=== PATIENT | female | born 1990 | race Caucasian/White ===

== ENCOUNTER 2016-05-30 17:52 | Emergency (ER) | payer BC ==
[2016-05-30] MEDS ORDERED: NS 0.9% 1000 ML* 1,000 ML IV ONE (20:21)
[2016-05-30] MEDS ORDERED: Ondansetron INJ* 2 MG/ML VIAL IV ONE (20:21)
--- NOTE | 2016-05-30 20:26 | ED ---
I, Oh,Soohyun, scribed for Tomi Gallardo MD on 05/30/16 at 2025 . Abdominal Pain/Female - HPI Summary HPI Summary: This 26 y/o female presents to ED for intermittent bilat upper abd pain since 2 days ago. Pain radiates to left mid back, and is worse after eating. She reports diaphoresis, nausea, and decreased appetite associated with abd pain episodes. Pt wasn't able to "eat whole [employer] burrito as usual but only ate half" yesterday. Negative vomiting, fever, or dysuria. Pt does report increased urinary frequency but dismisses it saying "I drank a lot of water thinking that it would make me feel better". LMP 3 weeks ago. Primary care involves Dr. Marsh. - History of Current Complaint Chief Complaint: EDAbdPain Stated Complaint: ABD PAIN Time Seen by Provider: 05/30/16 20:16 Hx Obtained From: Patient Hx Last Menstrual Period: 2 weeks ago started ?: No Timing: Intermittent Episode Lasting Pain Intensity: 5 Pain Scale Used: 0-10 Numeric Location: Discrete At: RUQ, Discrete At: LUQ Radiates: Yes Radiates to: Back - left mid back Character: Dull Aggravating Factor(s): Food Alleviating Factor(s): Nothing Associated Signs and Symptoms: Positive: Diaphoresis, Decreased Appetite, Nausea. Negative: Fever, Vomiting Allergies/Adverse Reactions: Allergies Allergy/AdvReac Type Severity Reaction Status Date / Time Aspirin Allergy GI Upset Verified 08/31/15 13:49 Ibuprofen Allergy GI Upset Verified 08/31/15 13:49 Penicillins Allergy Rash Verified 08/31/15 13:49 Pineapple Allergy tongue Verified 08/31/15 13:49 swelling cats Allergy asthma Uncoded 08/31/15 13:49 inducing tomatoes Allergy itching Uncoded 08/31/15 13:49 tongue with swelling PMH/Surg Hx/FS Hx/Imm Hx Endocrine/Hematology History: Reports: Hx Thyroid Disease Denies: Hx Diabetes Cardiovascular History: Denies: Hx Hypertension Respiratory History: Reports: Hx Asthma Denies: Hx Chronic Obstructive Pulmonary Disease (COPD) GI History: Denies: Hx Ulcer Musculoskeletal History: Denies: Hx Rheumatoid Arthritis, Hx Osteoporosis Infectious Disease History: Reports: Hx Shingles Denies: Hx Clostridium Difficile, Hx Hepatitis, Hx Human Immunodeficiency Virus (HIV), Hx of Known/Suspected MRSA, Hx Tuberculosis, Hx Known/Suspected VRE , Hx Known/Suspected VRSA, History Other Infectious Disease, Traveled Outside the [place] in Last 30 Days - Family History Known Family History: Positive: Diabetes - mother - Social History Alcohol Use: Rare Hx Substance Use: No Substance Use Type: Reports: None Hx Tobacco Use: No Smoking Status (MU): Never Smoked Tobacco Review of Systems Positive: Skin Diaphoresis. Negative: Fever Positive: Abdominal Pain - radiating to left mid back, Nausea, Other - decreased appetite. Negative: Vomiting Positive: frequency - increased. Negative: dysuria All Other Systems Reviewed And Are Negative: Yes Physical Exam Triage Information Reviewed: Yes Vital Signs On Initial Exam: Initial Vitals Temp Pulse Resp BP Pulse Ox 98.0 F 97 18 156/99 100 05/30/16 17:57 05/30/16 17:57 05/30/16 17:57 05/30/16 17:57 05/30/16 17:57 Vital Signs Reviewed: Yes Appearance: Positive: Well-Appearing, No Pain Distress Skin: Positive: Warm Head/Face: Positive: Normal Head/Face Inspection Eyes: Positive: OMARI ENT: Positive: Hearing grossly normal Neck: Positive: Supple, Nontender Respiratory/Lung Sounds: Positive: Breath Sounds Present Cardiovascular: Positive: RRR Abdomen Description: Positive: Nontender, Soft Bowel Sounds: Positive: Present Musculoskeletal: Positive: Strength/ROM Intact Neurological: Positive: Sensory/Motor Intact, Alert, Oriented to Person Place, Time Psychiatric: Positive: Affect/Mood Appropriate Diagnostics - Vital Signs Vital Signs Temp Pulse Resp BP Pulse Ox 05/30/16 17:57 98.0 F 97 18 156/99 100 - Laboratory Result Diagrams: 05/30/16 21:00 05/30/16 21:00 Lab Statement: Any lab studies that have been ordered have been reviewed, and results considered in the medical decision making process. Re-Evaluation - Re-Evaluation First Eval Change: Improved Abdominal Pain Fem Course/Dx - Diagnoses Provider Diagnoses: Abdominal pain Discharge - Discharge Plan Condition: Stable Disposition: HOME Patient Education Materials: Diet for Stomach Ulcers and Gastritis (ED), Abdominal Pain (ED) Referrals: Jesus Kaye MD [Medical Doctor] - 2 Days Laura Marsh MD [Primary Care Provider] - 2 Days The documentation as recorded by the scribeMarino Soohyun accurately reflects the service I personally performed and the decisions made by me, Tomi Gallardo MD.
[2016-05-30 21:11] LABS: Hematocrit 39 % (35-47); Hemoglobin 12.9 g/dl (12.0-16.0); Mean Corpuscular HGB Conc 33 g/dl (31-36); Mean Corpuscular Hemoglobin 26 pg (27-31); Mean Corpuscular Volume 79 fL (80-97); Mean Platelet Volume 9 um3 (7.4-10.4); Red Cell Distribution Width 16 % (10.5-15); White Blood Count 12.1 10^3/ul (3.5-10.8)
[2016-05-30 21:18] LABS: Urine Bacteria Absent (Absent); Urine Bilirubin Negative (Negative); Urine Glucose Negative (Negative); Urine Nitrite Negative (Negative)
[2016-05-30 21:24] LABS: Albumin 3.9 g/dL (3.2-5.2); BUN/Creatinine Ratio 13.6 (8-20); C Reactive Protein 27.29 mg/L (< 5.00); Calcium 9.3 mg/dL (8.6-10.3); EGFR African American 137.1 (>60); EGFR Non-African American 106.6 (>60); Globulin 3.7 g/dL (2-4); Magnesium 2.1 mg/dL (1.9-2.7); Potassium 3.7 mmol/L (3.5-5.0); Total Bilirubin 0.2 mg/dL (0.2-1.0); Total Protein 7.6 g/dL (6.4-8.9)
[2016-05-30] MEDS ORDERED: Metoclopramide IV* 5 MG/ML 2 ML VIAL IV ONE (21:34)
[2016-05-30 22:28] VITALS: BP 150/87
== END 2016-05-30 22:29 | disposition home or self-care (01) ==
LOC: ED 17:52
DX: R10.9 Unspecified abdominal pain (principal)
CPT/HCPCS: 36415; 80053; 81003; 81015; 83605; 83690; 83735; 84702; 85025; 86140; 87086; 96374; 99283; J2405

== ENCOUNTER 2020-05-20 16:04 | Inpatient (IN) ==
[2020-05-20 17:05] LABS: Urine Appearance Cloudy; Urine Bilirubin Negative (Negative); Urine Blood Negative (Negative); Urine Color Yellow; Urine Glucose Negative (Negative); Urine Ketones Negative (Negative); Urine Nitrite Negative (Negative); Urine Protein 2+(100 mg/dL) (Negative); Urine Specific Gravity 1.028 (1.002-1.030); Urine Urobilinogen Negative (Negative)
[2020-05-20 17:11] LABS: Urine Bacteria Absent (Absent); Urine Red Blood Cell 1+(3-5/hpf) (Absent); Urine Squamous Epithelial Cell Present (Absent); Urine White Blood Cell Trace(0-5/hpf) (Absent)
[2020-05-20 17:45] LABS: ABS Basophils 0.1 10^3/ul (0-0.2); ABS Eosinophils 0.1 10^3/ul (0-0.6); ABS Lymphocytes 2.9 10^3/ul (1.0-4.8); ABS Monocytes 0.7 10^3/ul (0-0.8); ABS Neutrophils 5.7 10^3/ul (1.5-7.7); Eosinophil % 1.2 %; Hematocrit 36 % (35-47); Hemoglobin 12.2 g/dL (12.0-16.0); Lymphocyte % 30.6 %; Mean Corpuscular HGB Conc 34 g/dL (31-36); Mean Corpuscular Hemoglobin 27 pg (27-31); Mean Corpuscular Volume 80 fL (80-97); Mean Platelet Volume 10.3 fL (7.4-10.4); Nucleated Red Blood Cells % 0.1; Platelet Count 273 10^3/uL (150-450); Red Blood Count 4.53 10^6 /uL (3.70-4.87); Red Cell Distribution Width 16 % (10-15); White Blood Count 9.4 10^3/uL (3.5-10.8)
[2020-05-20 17:59] LABS: Albumin 3.1 g/dL (3.2-5.2); Albumin/Globulin Ratio 0.9 (1-3); BUN/Creatinine Ratio 19.6 (8-20); Calcium 8.7 mg/dL (8.6-10.3); EGFR African American 151.8 (>60); EGFR Non-African American 125.5 (>60); Globulin 3.5 g/dL (2-4); Potassium 4.1 mmol/L (3.5-5.0); Total Bilirubin 0.2 mg/dL (0.2-1.0); Total Protein 6.6 g/dL (6.4-8.9); Uric Acid 6.8 mg/dL (2.3-6.6)
[2020-05-20] MEDS ORDERED: MAGNESIUM SULF IVPB ONE (18:36)
[2020-05-20] MEDS ORDERED: Dinoprostone 10 MG VAG.SUPP VAGINAL ONE (18:36)
[2020-05-20 19:22] LABS: Platelet Count 268 10^3/ul (150-450)
[2020-05-20 19:32] LABS: Activated Partial Thrombo Time 28.6 seconds (26.0-38.0); Fibrinogen 496.6 mg/dL (110.8-404.3)
[2020-05-20] MEDS: Magnesium Sulfate OB PREMIX 40 GM/1,000 ML BAG IVPB SCH (19:47)
[2020-05-20] MEDS: Lactated Ringers 1000 ml BAG 1,000 ML IV SCH (19:48)
[2020-05-20 19:59] LABS: Schistocytes ABSENT
[2020-05-20] MEDS ORDERED: Magnesium Sulfate OB PREMIX 40 GM/1,000 ML BAG IV ONE (20:00)
[2020-05-20 20:17] LABS: Urine Benzodiazepine Screen None Detected (None Detect); Urine Cannabinoids Screen Presumptive Positive (None Detect); Urine Opiates Screen None Detected (None Detect)
[2020-05-20] MEDS ORDERED: Albuterol HFA INHALER 8 gm MDI INH PRN (20:25)
[2020-05-21 05:43] LABS: ABS Basophils 0.1 10^3/ul (0-0.2); ABS Eosinophils 0.2 10^3/ul (0-0.6); ABS Lymphocytes 3.2 10^3/ul (1.0-4.8); ABS Monocytes 0.6 10^3/ul (0-0.8); ABS Neutrophils 5.7 10^3/ul (1.5-7.7); Eosinophil % 1.6 %; Hematocrit 38 % (35-47); Hemoglobin 12.5 g/dL (12.0-16.0); Lymphocyte % 32.4 %; Mean Corpuscular HGB Conc 33 g/dL (31-36); Mean Corpuscular Hemoglobin 27 pg (27-31); Mean Corpuscular Volume 80 fL (80-97); Platelet Count 260 10^3/uL (150-450); Red Blood Count 4.67 10^6 /uL (3.70-4.87); Red Cell Distribution Width 16 % (10-15); White Blood Count 9.7 10^3/uL (3.5-10.8)
[2020-05-21 06:04] LABS: Albumin/Globulin Ratio 0.8 (1-3); BUN/Creatinine Ratio 17.2 (8-20); Calcium 7.8 mg/dL (8.6-10.3); EGFR African American 145.8 (>60); EGFR Non-African American 120.5 (>60); Globulin 3.6 g/dL (2-4); Potassium 4.2 mmol/L (3.5-5.0); Total Bilirubin 0.2 mg/dL (0.2-1.0); Total Protein 6.6 g/dL (6.4-8.9)
[2020-05-21] MEDS: Lactated Ringers 1000 ml BAG 1,000 ML IV SCH (08:38)
[2020-05-21] MEDS: FLUTICASONE 110 MCG INH SCH (10:01)
[2020-05-21] MEDS: MDI INH SCH (10:01)
[2020-05-21] MEDS: Magnesium Sulfate OB PREMIX 40 GM/1,000 ML BAG IVPB SCH (12:09)
[2020-05-21] MEDS ORDERED: OBEPIDURAL 250 ML EPIDURAL ONE (15:21)
[2020-05-21] MEDS ORDERED: Bupivacaine 0.25% SDV PF 10 ML VIAL INJ ONE (15:23)
[2020-05-21] MEDS ORDERED: Phenylephrine 40 mcg/mL 10mL (400mcg) SYRINGE IV PUSH PRN ×2 (16:09)
[2020-05-21] MEDS ORDERED: Lactated Ringers 1000 ml BAG 1,000 ML IV ONE (16:09)
[2020-05-21] MEDS ORDERED: Sodium Citrate/Citric Acid LIQ 15 ML UDC PO PRN (16:09)
[2020-05-21] MEDS ORDERED: OBEPIDURAL 250 ML EPIDURAL SCH (17:00)
[2020-05-21] MEDS ORDERED: Lactated Ringers 1000 ml BAG 1,000 ML IV SCH ×2 (17:00→19:00)
[2020-05-21 17:35] LABS: Urine Appearance Clear; Urine Bilirubin Negative (Negative); Urine Blood Negative (Negative); Urine Color Yellow; Urine Glucose Negative (Negative); Urine Ketones Negative (Negative); Urine Nitrite Negative (Negative); Urine Protein 1+(30 mg/dL) (Negative); Urine Specific Gravity 1.014 (1.002-1.030); Urine Urobilinogen Negative (Negative)
[2020-05-21 17:40] LABS: Urine Bacteria Absent (Absent); Urine Red Blood Cell Trace(0-2/hpf) (Absent); Urine Squamous Epithelial Cell Present (Absent); Urine White Blood Cell Trace(0-5/hpf) (Absent)
[2020-05-21] MEDS: Oxytocin in LR 20 UNITS/1,000 ML BAG IVPB SCH (18:00)
[2020-05-21 20:32] LABS: Hematocrit 39 % (35-47); Hemoglobin 12.8 g/dL (12.0-16.0); Mean Corpuscular HGB Conc 33 g/dL (31-36); Mean Corpuscular Hemoglobin 27 pg (27-31); Mean Corpuscular Volume 82 fL (80-97); Mean Platelet Volume 10.1 fL (7.4-10.4); Platelet Count 237 10^3/uL (150-450); Red Blood Count 4.75 10^6 /uL (3.70-4.87); Red Cell Distribution Width 16 % (10-15); White Blood Count 10.6 10^3/uL (3.5-10.8)
[2020-05-21 20:43] LABS: Albumin 3.1 g/dL (3.2-5.2); Calcium 7.4 mg/dL (8.6-10.3); Potassium 4.5 mmol/L (3.5-5.0); Total Bilirubin 0.2 mg/dL (0.2-1.0)
[2020-05-21 20:49] LABS: Albumin/Globulin Ratio 0.9 (1-3); EGFR African American 145.8 (>60); EGFR Non-African American 120.5 (>60); Globulin 3.4 g/dL (2-4); Total Protein 6.5 g/dL (6.4-8.9)
[2020-05-21] MEDS ORDERED: ceFOXitin 2 GM IVPREMIX 2 GM/50 ML BAG ONE (21:32)
[2020-05-21] MEDS ORDERED: Carboprost Tromethamine 250 mcg 1 ml VIAL ONE (21:34)
[2020-05-21] MEDS ORDERED: Midazolam 2 mg/2 ml VIAL 1 mg/ml 2 ml VIAL (2 mg) ONE (22:56)
[2020-05-21] MEDS ORDERED: Oxytocin 10 UNITS/ML 1 ML VIAL ONE (23:10)
[2020-05-21] MEDS ORDERED: Chloroprocaine 3% 20 ml VIAL ONE (23:11)
[2020-05-21] MEDS ORDERED: Ondansetron 4 mg VIAL 2 MG/ML 2 ml VIAL ONE (23:38)
[2020-05-21] MEDS ORDERED: Labetalol IV 5 MG/ML 20 ml VIAL ONE (23:38)
[2020-05-22] MEDS ORDERED: HYDROmorphone 0.5 MG/0.5 ML SYRINGE ONE ×3 (00:12→01:27)
[2020-05-22] MEDS ORDERED: Dibucaine 1% OINT 28.35 GM TUBE PR PRN (00:17)
[2020-05-22] MEDS ORDERED: Glycerin ADULT 2.4 gm SUPP PR PRN (00:17)
[2020-05-22] MEDS ORDERED: Witch Hazel PAD JAR TOPICAL PRN (00:17)
[2020-05-22] MEDS: HYDROmorphone 0.5 MG/0.5 ML SYRINGE IV SLOW PU PRN ×3 (00:17→01:29)
[2020-05-22] MEDS ORDERED: Lactated Ringers 1000 ml BAG 1,000 ML IV SCH (01:00)
[2020-05-22] MEDS ORDERED: Acetaminophen IV 1 GM/100ML 100 ML ONE (01:30)
[2020-05-22] MEDS ORDERED: Ondansetron 4 mg VIAL 2 MG/ML 2 ml VIAL IV PRN (01:32)
[2020-05-22] MEDS ORDERED: diPHENhydraMINE IV 50 MG/ML 1 ml VIAL (BENADRYL) IV PRN (01:33)
[2020-05-22] MEDS ORDERED: Acetaminophen IV 1 GM/100ML 100 ML IVPB SCH ×2 (06:00→10:00)
[2020-05-22] MEDS: Magnesium Sulfate OB PREMIX 40 GM/1,000 ML BAG IVPB SCH (09:24)
[2020-05-22] MEDS: FLUTICASONE 110 MCG INH SCH (09:41)
[2020-05-22] MEDS: MDI INH SCH (09:41)
[2020-05-22] MEDS: Oxytocin in LR 20 UNITS/1,000 ML BAG IVPB SCH (09:44)
[2020-05-22 10:04] LABS: ABS Basophils 0.1 10^3/ul (0-0.2); ABS Eosinophils 0.1 10^3/ul (0-0.6); ABS Lymphocytes 2.3 10^3/ul (1.0-4.8); ABS Monocytes 0.8 10^3/ul (0-0.8); ABS Neutrophils 12.1 10^3/ul (1.5-7.7); Eosinophil % 0.4 %; Hematocrit 34 % (35-47); Hemoglobin 11.2 g/dL (12.0-16.0); Lymphocyte % 14.9 %; Mean Corpuscular HGB Conc 33 g/dL (31-36); Mean Corpuscular Hemoglobin 26 pg (27-31); Mean Corpuscular Volume 81 fL (80-97); Mean Platelet Volume 10.1 fL (7.4-10.4); Platelet Count 252 10^3/uL (150-450); Red Blood Count 4.27 10^6 /uL (3.70-4.87); Red Cell Distribution Width 16 % (10-15); White Blood Count 15.2 10^3/uL (3.5-10.8)
[2020-05-22 10:24] LABS: Albumin 2.7 g/dL (3.2-5.2); Albumin/Globulin Ratio 0.9 (1-3); BUN/Creatinine Ratio 11.9 (8-20); Calcium 7.1 mg/dL (8.6-10.3); EGFR African American 142.9 (>60); EGFR Non-African American 118.1 (>60); Globulin 3.1 g/dL (2-4); Potassium 3.8 mmol/L (3.5-5.0); Total Bilirubin 0.2 mg/dL (0.2-1.0); Total Protein 5.8 g/dL (6.4-8.9)
[2020-05-23 06:54] LABS: ABS Basophils 0.1 10^3/ul (0-0.2); ABS Eosinophils 0.2 10^3/ul (0-0.6); ABS Lymphocytes 3.4 10^3/ul (1.0-4.8); ABS Monocytes 0.8 10^3/ul (0-0.8); ABS Neutrophils 8.6 10^3/ul (1.5-7.7); Eosinophil % 1.7 %; Hematocrit 32 % (35-47); Hemoglobin 10.5 g/dL (12.0-16.0); Lymphocyte % 26.1 %; Mean Corpuscular HGB Conc 33 g/dL (31-36); Mean Corpuscular Hemoglobin 27 pg (27-31); Mean Corpuscular Volume 81 fL (80-97); Mean Platelet Volume 9.7 fL (7.4-10.4); Platelet Count 242 10^3/uL (150-450); Red Blood Count 3.95 10^6 /uL (3.70-4.87); Red Cell Distribution Width 16 % (10-15); White Blood Count 13.2 10^3/uL (3.5-10.8)
[2020-05-24 08:13] VITALS: BP 145/74
== END 2020-05-24 12:35 | disposition home or self-care (01) | DRG 540 ==
LOC: MCHOBOUT 16:04 → MCHOB 18:23
PROVIDERS: ADMIT Midwife; ATTEND Obstetrics & Gynecology